=== PATIENT | female | born 1960 | race Caucasian/White ===

== ENCOUNTER 2017-04-23 12:30 | Emergency (ER) | payer SELFPAY ==
[~2017-04-23] VITALS: Wt 69.0 kg
[2017-04-23] MEDS ORDERED: IBUP400T22 PO (12:54)
[2017-04-23] MEDS ORDERED: FLUT9.9S NASAL (12:54)
[2017-04-23] MEDS ORDERED: LORA-186 PO (12:54)
--- NOTE | 2017-04-23 13:15 | ERD ---
ER Documentation Chief Complaint Date/Time DATE: 04/23/17 TIME: 13:12 Chief Complaint THROAT PAIN, BACK PAIN HPI 56-year-old female presents to the emergency department complaining of sore throat, congestion, headache since Monday. Patient rates this moderate in severity. She denies any fevers, cough, chest pain, shortness of breath. Denies any relevant medical problems ROS All systems reviewed and are negative except as per history of present illness. Medications Home Meds Active Scripts Loratadine* (Claritin*) 10 Mg Tablet, 10 MG PO DAILY, #30 TAB Prov:PRISCA GARZA PA-C 04/23/17 Fluticasone Propionate (Flonase Allergy Relief) 9.9 Ml [place].susp, 1 SPRAY NASAL BID for 14 Days, #1 BOTTLE TO EACH NOSTRIL Prov:PRISCA GARZA PA-C 04/23/17 Ibuprofen* (Ibuprofen*) 400 Mg Tablet, 400 MG PO Q6H Y for PAIN, #30 TAB Prov:PRISCA GARZA PA-C 04/23/17 PMhx/Soc Medical and Surgical Hx: pt denies Medical Hx, pt denies Surgical Hx Hx Alcohol Use: No Hx Substance Use: No Hx Tobacco Use: No Smoking Status: Never smoker Physical Exam Vitals Vital Signs Date Time Temp Pulse Resp B/P Pulse Ox O2 Delivery O2 Flow Rate FiO2 04/23/17 12:34 97.9 70 17 140/72 98 Physical Exam GENERAL: well-developed/well-nourished, in no apparent distress, non-toxic appearing HEAD: NC/AT, no swelling noted in frontal or maxillary areas EARS: bilateral tympanic membrane is intact without erythema or effusion NARES: congested THROAT: oropharynx non-erythematous without exudates, no tonsil enlargement, post nasal drip EYES: Conjunctiva normal NECK: Supple, no lymphadenopathy PULM: CTA bilaterally, no rales, rhonchi, or wheezing heard CV: Normal S1S2, RRR, good capillary refill GI: Soft, non-distended, normal bowel sounds, non-tender BACK: No midline tenderness, no masses EXT No clubbing, cyanosis, or edema NEURO: Alert and Orientated SKIN: Intact, normal turgor PSYCH: Normal mood and mentation Procedures/MDM 56 year old female presents to the ER with upper respiratory infection, which is most likely viral. My clinical suspicion is low suspicion for pneumonia, strep pharyngitis, or pulmonary emergencies due to physical examination. Patient 's lungs were clear on examination. hemodynamically stable for discharge. Prescription for ibuprofen was given to patient, discussed to return to the ED if not improving as expected or follow- up with a primary care physician. Patient understood and agreed with this plan. Departure Diagnosis: Primary Impression: Pharyngitis Pharyngitis/tonsillitis etiology: unspecified etiology Qualified Code: J02.9 - Pharyngitis, unspecified etiology Additional Impression: URI (upper respiratory infection) URI type: unspecified URI Qualified Code: J06.9 - Upper respiratory tract infection, unspecified type Condition: Stable Patient Instructions: Preventing Common Respiratory Infections Additional Instructions: Visite a carmen [facility]rell para un EXAMEN.Regrese a estas instalaciones si no se mejora vane esperbamos o vane le dijimos. Planada toda la medicina millicent y vane se le indic. Regrese a estas instalaciones si no se mejora vane esperbamos o vane le dijimos. FOLLOW UP WITH YOUR PRIMARY CARE PHYSICIAN TOMORROW.Return to this facility if you are not improving as expected. Take all medicines as directed. Return to this facility if you are not improving as expected. PRISCA GARZA PA-C Apr 23, 2017 13:15
== END 2017-04-23 13:09 | disposition home or self-care (01) ==
LOC: FTE 12:30
DX: J02.9 Acute pharyngitis, unspecified (principal); J06.9 Acute upper respiratory infection, unspecified
CPT/HCPCS: 99283